=== PATIENT | male | born 1925 | race Caucasian/White ===

== ENCOUNTER → 2016-07-01 | Outpatient (CLI) | payer OTHER, MEDICARE ==
[~2016-07-01] MED LIST: ALBUAER2 INH; ASPI81TA28 PO; BRIM0.2S OPB; CHOLTAB3 PO
== END | disposition home or self-care (01) ==
LOC: C.LABMFLN 13:33
PROVIDERS: ATTEND Family Medicine
DX: E11.9 Type 2 diabetes mellitus without complications (principal)